=== PATIENT | female | born 1970 ===

== ENCOUNTER 2019-07-19 17:44 | Observation (INO) ==
--- NOTE | 2019-07-19 18:26 | Emergency Department Note ---
Disposition Clinical Impression: Chest pain, ST segment depression, Hypokalemia Disposition: Admitted As Inpatient Time of Disposition: 18:50 Chest Pain HPI - General Chief Complaint: ED Chest Pain Stated Complaint: chest pain Time Seen by Provider: 07/19/19 18:07 Source: patient Limitations: no limitations Vital Signs Reviewed: Yes Nursing Notes Reviewed: Yes - History of Present Illness HPI Narrative: Patient is a 48-year-old female past medical history of hyperlipidemia, hypokalemia, gastric bypass, and tobacco use, returning to the emergency department with chest pain. She was here earlier in the day, but then had to leave to help administer insulin to her son who has diabetes. She has a 2 day history of left-sided nonradiating chest pain. Associated with shortness of breath, lightheadedness, nausea. She has now returned for her pending admission for chest pain, ECG with ST depressions, and hypokalemia. Hospitalist is already evaluating the patient. Severity scale (1-10): 4 - Related Data Home Medications Medication Instructions Recorded Confirmed Meclizine HCl [Verticalm] 25 mg PO TID PRN 07/19/19 07/19/19 Nutritional Supplement [Osmolite 1 - 2 can PO DAILY 07/19/19 07/19/19 1.2 Daquan] Omeprazole [PriLOSEC] 40 mg PO DAILY 07/19/19 07/19/19 Triamcinolone Acet 0.1% CRM 1 appl TP BID PRN 07/19/19 07/19/19 [Kenalog] Allergies Allergy/AdvReac Type Severity Reaction Status Date / Time doxycycline Allergy Shakiness Verified 07/19/19 17:59 egg Allergy Difficulty Verified 07/19/19 17:59 Breathing Influenza Virus Vaccines Allergy See Verified 07/19/19 17:59 Comments Pneumococcal Vaccine Allergy See Verified 07/19/19 17:59 Comments sulfamethoxazole Allergy Vomiting Verified 07/19/19 17:59 [From Bactrim] trimethoprim [From Bactrim] Allergy Vomiting Verified 07/19/19 17:59 Amoxicillin [From Augmentin] AdvReac Gastrointestinal Verified 07/19/19 17:59 Upset clavulanic acid AdvReac Gastrointestinal Verified 07/19/19 17:59 [From Augmentin] Upset Review of Systems: Admits to headache, lightheadedness, chest pain, dyspnea, and nausea. Denies fevers, chills, vision changes, cough, abdominal pain, change in bowels, dysuria, or edema Chest Pain PMH - Past Medical History Medical history: Reports: hyperlipidemia, hypertension Surgical history: Reports: non-contributory Psychiatric history: Reports: anxiety, bipolar, depression - Social History Smoking Status: Current every day smoker Alcohol use: Reports: none Drug use: Reports: none Physical Exam GEN: No acute distress, A&O3 HEAD: Atraumatic, normocephalic EYES: Pupils symmetric, sclera white, conjunctiva pink HEART: RRR, normal S1 and S2, no murmurs LUNGS: Clear to auscultation bilaterally, no wheezes, rhonchi, or crackles ABD: Soft, nontender, nondistended EXT: No edema noted, pulses +2 NEURO: No focal deficits, cooperative with exam - General Limitations: no limitations General appearance: alert, in no apparent distress Course Vital Signs Temperature 98.7 F 07/19/19 17:59 Pulse Rate 71 07/19/19 17:59 Respiratory Rate 15 07/19/19 17:59 Blood Pressure 144/85 07/19/19 17:59 O2 Sat by Pulse Oximetry 98 07/19/19 17:59 Temperature 98.1 F 07/19/19 20:19 Pulse Rate 69 07/19/19 20:19 Respiratory Rate 18 07/19/19 20:19 Blood Pressure 156/83 07/19/19 20:19 O2 Sat by Pulse Oximetry 98 07/19/19 20:19 Oxygen Delivery Oxygen Delivery Room Air Chest Pain - MDM Narrative Medical decision making narrative: Patient is returning to the emergency department after earlier evaluation for left-sided chest pain. EKG shows sinus rhythm, heart rate of 81, with ST depression in the inferior lateral leads. Potassium is low at 2.7. Initial troponin is negative. Admitting hospitalist is artery returned to the emergency department to evaluate the patient for admission for hypokalemia and chest pain.
--- NOTE | 2019-07-19 18:40 | Emergency Department Note ---
Disposition Clinical Impression: Chest pain, ST segment depression, Hypokalemia Disposition: Admitted As Inpatient Time of Disposition: 20:20 General Adult HPI - General Chief complaint: ED Chest Pain Stated complaint: chest pain Time Seen by Provider: 07/19/19 18:07 Source: patient Limitations: no limitations - History of Present Illness Pain Scale: 4 - Related Data Home Medications Medication Instructions Recorded Confirmed Meclizine HCl [Verticalm] 25 mg PO TID PRN 07/19/19 07/19/19 Nutritional Supplement [Osmolite 1 - 2 can PO DAILY 07/19/19 07/19/19 1.2 Daquan] Omeprazole [PriLOSEC] 40 mg PO DAILY 07/19/19 07/19/19 Triamcinolone Acet 0.1% CRM 1 appl TP BID PRN 07/19/19 07/19/19 [Kenalog] Allergies Allergy/AdvReac Type Severity Reaction Status Date / Time doxycycline Allergy Shakiness Verified 07/19/19 17:59 egg Allergy Difficulty Verified 07/19/19 17:59 Breathing Influenza Virus Vaccines Allergy See Verified 07/19/19 17:59 Comments Pneumococcal Vaccine Allergy See Verified 07/19/19 17:59 Comments sulfamethoxazole Allergy Vomiting Verified 07/19/19 17:59 [From Bactrim] trimethoprim [From Bactrim] Allergy Vomiting Verified 07/19/19 17:59 Amoxicillin [From Augmentin] AdvReac Gastrointestinal Verified 07/19/19 17:59 Upset clavulanic acid AdvReac Gastrointestinal Verified 07/19/19 17:59 [From Augmentin] Upset Past Medical History - Past Medical History Medical history: Reports: hyperlipidemia, hypertension Surgical history: Reports: non-contributory Psychiatric history: Reports: anxiety, bipolar, depression - Social History Smoking Status: Current every day smoker Smokeless Tobacco Status: No Alcohol use: Reports: none Drug use: Reports: none Physical Exam - General Limitations: no limitations General appearance: alert, in no apparent distress Course Vital Signs Temperature 98.7 F 07/19/19 17:59 Pulse Rate 71 07/19/19 17:59 Respiratory Rate 15 07/19/19 17:59 Blood Pressure 144/85 07/19/19 17:59 O2 Sat by Pulse Oximetry 98 07/19/19 17:59 Temperature 98.1 F 07/19/19 20:19 Pulse Rate 69 07/19/19 20:19 Respiratory Rate 18 07/19/19 20:19 Blood Pressure 156/83 07/19/19 20:19 O2 Sat by Pulse Oximetry 98 07/19/19 20:19 Oxygen Delivery Oxygen Delivery Room Air Attestation Statement - Attestation Attestation: I saw and evaluated the patient and and reviewed the resident's note/PA note/R D ENGINEER note, and I agree with the findings and plan. I personally supervised and was present for the josue/critical portions of any procedures. The medical decision- making was reviewed with the DAIRY QUALITY ASSURANCE OFFICER/PA/Advanced Practice Nurse/Resident Physician. I agree with the documented findings, disposition and treatment plan as described except to the extent set forth below. Patient was here earlier with chest pain and did have inferior lateral ST depression and significant hypokalemia with potassium of 2.6 returns now for admission and the reason she stopped this because she had to administer insulin to her son but now she is back for the admission that we recommended and is being seen by the hospitalist and we will have her admitted for further evaluation of chest pain and the significant hypokalemia. Of note the hyperkalemia is likely because of decreased absorption because of a bariatric surgery she had done when she was much younger and decreased absorption. 184
[2019-07-19] MEDS ORDERED: Ondansetron 4 MG/2 ML VIAL IVP PRN (21:55)
[2019-07-19] MEDS ORDERED: Menthol 9.1 MG LOZENGE PO PRN (22:02)
[2019-07-19] MEDS ORDERED: Haloperidol Lactate 5 MG/ML VIAL IVP ONE (22:03)
[2019-07-19 22:49] VITALS: BP 145/85
--- NOTE | 2019-07-19 23:48 | Event Note ---
Date of Encounter: 07/19/19 Time of Encounter: 21:28 Alerted by 3B Charge Nurse ESSIE Martin that the pt. was now on 3B for chest pain and wished to leave the unit to smoke. Nurse explained that the pt. was not allowed off the unit to smoke per hospital policy, d/t the fact that she had IV access, and was on telemetry. Nurse reported that the pt. was now agitated and anxious and wanting to leave AMA. Patient was seen in ED earlier in the day and left AMA. Patient then returned to the ED and pt. was discussed w/daytime admitter and accepted. However, patient was never seen by day team, no orders were placed by admitter, and there was no sign-out given to night team. Went to see this patient who was pacing in the room. Family member was present. I introduced myself and asked the patient what was wrong. The patient stated that she was anxious, that she did not want to be controlled by any male, and th at she has many issues in her life. I explained that she was not allowed to leave to smoke for the reasons outlined by the Charge Nurse previously. Patient stated she would probably leave AMA. I informed the patient that she was here for chest pain and she had a choice: stay and be treated for her chest pain or leave and possibly suffer an [place] once she left and . I informed her the choice was hers an no one else's. I informed the patient I could order a nicotine patch and something for her present anxiety/agitation. She declined both stating that drugs make her "crazy". Family member tried to reason with the patient as well. Patient then went into the bathroom to vomit. Patient came out of the restroom and I then explained that I could order a low dose of Haldol for her agitation as well as a patch. Patient then began drinking a Mountain Dew. I stated that Mountain Dew was highly caffeinated and would increase her HR. I instructed the patient to drink water instead. I then informed the pt. that whoever was going to admit her would likely order a stress test in the morning, meaning there would be no food, liquids, caffeine, or nicotine allowed after 00:00 d/t the stress test. Patient became more agitated. Patient stated she would try the low dose of Haldol. Ordered Zofran was DCd d/t contraindication w/Haldol r/t QT prolongation. Patient then stated she uses menthol cough drops at home for her nicotine cravings. Menthol cough drops ordered. Patient stated she would stay for the time being. Nurse instructed to continue monitoring the patient until she was admitted. Alerted by Charge Nurse at 21:43 that the pt. was leaving AMA and had signed papers. IV access was removed and patient left w/family member.
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
== END 2019-07-19 23:30 | disposition left against medical advice (07) ==
LOC: EMEROOARM 17:44 → 3BNU 17:44
PROVIDERS: ADMIT Internal Medicine; ATTEND Internal Medicine

== ENCOUNTER 2021-07-07 16:25 | Observation (INO) ==
[2021-07-07] MEDS ORDERED: 0.9 % Sodium Chloride 1,000 ML IVC ONE (16:40)
[2021-07-07 17:36] LABS: BUN/Creatinine Ratio 4 (6-26); Blood Urea Nitrogen 3 mg/dL (6-20); Calcium 9.6 mg/dL (8.6-10.3); Carbon Dioxide 35 mEq/L (23-29); Chloride 89 mEq/L (98-107); Glucose 104 mg/dL (70-105); Magnesium 1.4 mg/dL (1.6-2.6); Osmolality,Calculated 279 (280-300); Potassium 2.2 mEq/L (3.5-5.1); Sodium 136 mEq/L (136-145); Troponin I < 0.03 ng/mL (< 0.04); eGFR For African Americans > 60 (> 60); eGFR For Non-African Americans > 60 (> 60)
[2021-07-07] MEDS ORDERED: Potassium Chloride 40 MEQ, Lidocaine 1% 2 ML in 0.9 % Sodium Chloride 500 ML IVPB ONE (17:42)
[2021-07-07 17:58] LABS: Basophils # 0.1 K/mcL (0.0-0.2); Basophils % 0.6 %; Eosinophils # 0.1 K/mcL (0.0-0.6); Eosinophils % 0.5 %; Hematocrit 43.8 % (35.3-44.9); Hemoglobin 14.5 g/dL (11.5-15.4); Immature Granulocytes % 0.7 % (0-4); Lymphocytes # 1.1 K/mcL (0.6-4.6); Lymphocytes % 8.5 %; Mean Corpuscular HGB Conc 33.1 g/dL (31.6-35.5); Mean Corpuscular Hemoglobin 32.1 pg (28.0-33.3); Mean Corpuscular Volume 96.9 fL (83.0-100.0); Mean Platelet Volume 9.6 fL (9.4-12.4); Monocytes # 0.8 K/mcL (0.0-1.3); Monocytes % 5.7 %; Neutrophils # 11.3 K/mcL (1.6-8.9); Platelet Count 197 K/mcL (140-400); Red Blood Count 4.52 M/mcL (3.82-4.97); White Blood Count 13.4 K/mcL (4.3-11.1)
[2021-07-07] MEDS ORDERED: Potassium Chloride Elixir 20 MEQ/15 ML UDC PO ONE (19:27)
[2021-07-07 19:33] LABS: Adenovirus Not Detected (Not Detect); Bordetella Pertussis Not Detected (Not Detect); Chlamydophila pneumoniae Not Detected (Not Detect); Coronavirus 229E Not Detected (Not Detect); Coronavirus HKU1 Not Detected (Not Detect); Coronavirus NL63 Not Detected (Not Detect); Coronavirus OC43 Not Detected (Not Detect); Human Metapneumovirus Not Detected (Not Detect); Human Rhinovirus/Enterovirus Not Detected (Not Detect); Influenza A Subtype 2009 H1 Not Detected (Not Detect); Influenza B Not Detected (Not Detect); Mycoplasma pneumoniae Not Detected (Not Detect); Parainfluenza Virus 1 Not Detected (Not Detect); Parainfluenza Virus 2 Not Detected (Not Detect); Parainfluenza Virus 3 Not Detected (Not Detect); Parainfluenza Virus 4 Not Detected (Not Detect); Respiratory Syncytial Virus Not Detected (Not Detect); SARS-CoV-2 Not Detected (Not Detect)
[2021-07-07] MEDS ORDERED: Perflutren Lipid Microsphere 1.3 ML in 0.9 % Sodium Chloride 8.7 ML IVP PRN (19:35)
[2021-07-07] MEDS ORDERED: Albuterol 2.5 MG/3 ML NEBULIZER IH PRN (19:35)
[2021-07-07] MEDS ORDERED: *HR* Metoprolol 5 MG/5 ML VIAL IVP ONE (19:40)
[2021-07-07] MEDS ORDERED: Acetaminophen 325 MG TABLET PO PRN (19:41)
[2021-07-07] MEDS ORDERED: Naloxone 0.4 MG/ML INJ IVP PRN (19:41)
[2021-07-07] MEDS ORDERED: Ondansetron 4 MG/2 ML VIAL IVP PRN (19:41)
[2021-07-07] MEDS ORDERED: Melatonin 3 MG TABLET PO PRN (19:41)
[2021-07-07] MEDS ORDERED: 0.9 % Sodium Chloride 1,000 ML IVC SCH (19:45)
[2021-07-07] MEDS: Albuterol 2.5 MG/3 ML NEBULIZER IH SCH (20:12)
[2021-07-07 23:33] VITALS: BP 145/74; PULSE 64; TEMP 97.9; O2SAT 97
[2021-07-08] MEDS: Albuterol 2.5 MG/3 ML NEBULIZER IH SCH (00:11)
[2021-07-08 00:58] LABS: Basophils # 0.1 K/mcL (0.0-0.2); Basophils % 0.4 %; Eosinophils # 0.2 K/mcL (0.0-0.6); Eosinophils % 1.2 %; Hematocrit 37.2 % (35.3-44.9); Hemoglobin 12.1 g/dL (11.5-15.4); Immature Granulocytes % 0.8 % (0-4); Lymphocytes # 2.1 K/mcL (0.6-4.6); Lymphocytes % 15.8 %; Mean Corpuscular HGB Conc 32.5 g/dL (31.6-35.5); Mean Corpuscular Hemoglobin 30.9 pg (28.0-33.3); Mean Corpuscular Volume 94.9 fL (83.0-100.0); Mean Platelet Volume 8.4 fL (9.4-12.4); Monocytes # 0.8 K/mcL (0.0-1.3); Monocytes % 5.8 %; Neutrophils # 9.8 K/mcL (1.6-8.9); Platelet Count 273 K/mcL (140-400); Red Blood Count 3.92 M/mcL (3.82-4.97)
[2021-07-08 02:09] LABS: Alanine Aminotransferase 11 Units/L (7-52); Albumin 2.8 g/dL (3.5-5.7); Alkaline Phosphatase 86 Units/L (34-104); Aspartate Amino Transferase 16 Units/L (13-39); BUN/Creatinine Ratio 4 (6-26); Bilirubin,Total 0.4 mg/dL (0.3-1.0); Blood Urea Nitrogen 3 mg/dL (6-20); Calcium 7.7 mg/dL (8.6-10.3); Carbon Dioxide 24 mEq/L (23-29); Chloride 105 mEq/L (98-107); Chol/HDL Ratio 5.7 (0-4.9); Cholesterol 164 mg/dL (< 200); Globulin 2.7 g/dL (2.4-3.5); Glucose 125 mg/dL (70-105); HDL Cholesterol 29 mg/dL (40-59); LDL Cholesterol,Calculated 109 mg/dL (< 100); Osmolality,Calculated 286 (280-300); Potassium 2.9 mEq/L (3.5-5.1); Sodium 139 mEq/L (136-145); Total Protein 5.5 g/dL (6.4-8.9); Triglycerides 130 mg/dL (< 150); eGFR For African Americans > 60 (> 60); eGFR For Non-African Americans > 60 (> 60)
[2021-07-08] MEDS ORDERED: *HR* Heparin 5,000 UNIT/ML VIAL SQ SCH (06:00)
[2021-07-08] MEDS ORDERED: Aspirin 81 MG TAB.CHEW PO SCH (09:00)
[2021-07-08] MEDS ORDERED: NUTRITIONAL SUPPLEMENT PO SCH (09:00)
== END 2021-07-08 03:30 | disposition left against medical advice (07) ==
LOC: 2ANU 16:25 → EMEROOARM 16:25 → 2ANU 19:32
PROVIDERS: ADMIT Student in an Organized Health Care Education/Training Program; ATTEND Student in an Organized Health Care Education/Training Program

== ENCOUNTER 2022-07-06 20:04 | Observation (INO) ==
[2022-07-06 22:25] LABS: Basophils # 0.1 K/mcL (0.0-0.2); Basophils % 0.4 %; Eosinophils # 0.1 K/mcL (0.0-0.6); Eosinophils % 0.6 %; Hematocrit 46.1 % (35.3-44.9); Hemoglobin 15.9 g/dL (11.5-15.4); Immature Granulocytes % 0.8 % (0-4); Lymphocytes # 1.8 K/mcL (0.6-4.6); Lymphocytes % 10.8 %; Mean Corpuscular HGB Conc 34.5 g/dL (31.6-35.5); Mean Corpuscular Hemoglobin 30.7 pg (28.0-33.3); Mean Platelet Volume 8.6 fL (9.4-12.4); Monocytes % 5.8 %; Neutrophils # 13.5 K/mcL (1.6-8.9); Platelet Count 388 K/mcL (140-400); Red Blood Count 5.18 M/mcL (3.82-4.97); Red Cell Distribution Width 13.5 % (11.5-14.5); Segmented Neutrophils % 81.6 %; White Blood Count 16.5 K/mcL (4.3-11.1)
[2022-07-06 22:30] LABS: Activated Partial Thrombo Time 35.9 Seconds (26.0-36.0); Prothrombin Time 10.7 Seconds (9.4-12.1)
[2022-07-06] MEDS: Nitroglycerin 0.4 MG TAB.SUBL SL PRN ×3 (22:40→23:26)
[2022-07-06 22:42] LABS: Calcium 8.5 mg/dL (8.6-10.3); Potassium 2.5 mEq/L (3.5-5.1)
[2022-07-06 22:54] LABS: Amphetamine Screen,Urine Negative ng/mL (Cutoff=1000); Barbiturate Screen,Urine Negative ng/mL (Cutoff=200); Benzodiazepines Screen,Urine Negative ng/mL (Cutoff=200); Cannabinoid Screen,Urine Negative ng/mL (Cutoff = 50); Cocaine Screen,Urine Negative ng/mL (Cutoff= 300); Opiate Screen,Urine Negative ng/mL (Cutoff=300); Phencyclidine Screen,Urine Negative ng/mL (Cutoff=25)
[2022-07-06] MEDS ORDERED: POTASSIUM CHLORIDE IN 0.9%NACL 40 MEQ/1,000 ML IV.SOLN IV ONE (23:05)
[2022-07-06] MEDS ORDERED: 0.9 % Sodium Chloride 1,000 ML IVC ONE (23:09)
[2022-07-06] MEDS ORDERED: Aspirin 325 MG TABLET PO ONE (23:28)
[2022-07-06] MEDS ORDERED: 0.9 % Sodium Chloride w KCl 40 MEQ/1,000 ML MLS IVC ONE (23:45)
[2022-07-07] MEDS ORDERED: Morphine Sulfate 2 MG/ML SYRINGE IVP ONE (00:24)
[2022-07-07] MEDS ORDERED: Melatonin 3 MG TABLET PO PRN (00:41)
[2022-07-07] MEDS ORDERED: Acetaminophen 325 MG TABLET PO PRN (00:41)
[2022-07-07] MEDS ORDERED: Ondansetron 4 MG/2 ML VIAL IVP PRN (00:41)
[2022-07-07] MEDS ORDERED: Naloxone 0.4 MG/ML INJ IVP PRN (00:41)
[2022-07-07] MEDS: Nitroglycerin 0.4 MG TAB.SUBL SL PRN (02:45)
[2022-07-07] MEDS ORDERED: *HR* Labetalol 20 MG/4 ML SYRINGE IVP ONE (02:45)
[2022-07-07] MEDS ORDERED: *HR* LORazepam 0.5 MG TABLET PO ONE (03:02)
[2022-07-07 04:01] LABS: BUN/Creatinine Ratio 10 (6-26); Blood Urea Nitrogen 7 mg/dL (6-20); Calcium 8.5 mg/dL (8.6-10.3); Carbon Dioxide 30 mEq/L (23-29); Chloride 92 mEq/L (98-107); Glucose 124 mg/dL (70-105); Magnesium 1.3 mg/dL (1.6-2.6); Osmolality,Calculated 275 (280-300); Potassium 2.9 mEq/L (3.5-5.1); Sodium 133 mEq/L (136-145)
[2022-07-07 04:14] LABS: Basophils # 0.1 K/mcL (0.0-0.2); Basophils % 0.4 %; Eosinophils # 0.1 K/mcL (0.0-0.6); Eosinophils % 0.8 %; Hemoglobin 15.5 g/dL (11.5-15.4); Immature Granulocytes % 0.8 % (0-4); Lymphocytes % 13.5 %; Mean Corpuscular HGB Conc 35.2 g/dL (31.6-35.5); Mean Corpuscular Hemoglobin 30.9 pg (28.0-33.3); Mean Corpuscular Volume 87.6 fL (83.0-100.0); Mean Platelet Volume 8.9 fL (9.4-12.4); Monocytes % 6.7 %; Neutrophils # 11.2 K/mcL (1.6-8.9); Platelet Count 418 K/mcL (140-400); Red Blood Count 5.02 M/mcL (3.82-4.97); Red Cell Distribution Width 13.4 % (11.5-14.5); Segmented Neutrophils % 77.8 %; White Blood Count 14.4 K/mcL (4.3-11.1)
[2022-07-07 04:26] LABS: Estimated Average Glucose 134 mg/dl; Hemoglobin A1C 6.3 %
[2022-07-07 04:32] LABS: Chol/HDL Ratio 6.6 (0-4.9); Troponin I 0.03 ng/mL (< 0.04)
[2022-07-07] MEDS: *HR* Enoxaparin 40 MG/0.4 ML SYRINGE SQ SCH (05:16)
[2022-07-07] MEDS: lisinopriL 10 MG TABLET PO SCH (08:19)
[2022-07-07] MEDS: Nicotine 21 MG PATCH.TD24 TD SCH (08:19)
[2022-07-07] MEDS: NIFEdipine XL (24 HR) 60 MG TAB.ER.24 PO SCH (08:19)
[2022-07-07] MEDS: 0.9 % Sodium Chloride w KCl 40 MEQ/1,000 ML MLS IVC SCH ×2 (08:20→23:35)
[2022-07-07 09:32] LABS: BUN/Creatinine Ratio 9 (6-26); Blood Urea Nitrogen 6 mg/dL (6-20); Calcium 8.4 mg/dL (8.6-10.3); Carbon Dioxide 33 mEq/L (23-29); Chloride 94 mEq/L (98-107); Glucose 109 mg/dL (70-105); Osmolality,Calculated 276 (280-300); Potassium 2.8 mEq/L (3.5-5.1); Sodium 134 mEq/L (136-145); Troponin I 0.03 ng/mL (< 0.04)
[2022-07-07] MEDS ORDERED: Iopamidol - 370 500 ML MLS IVP ONE (14:31)
[2022-07-07 20:47] LABS: Thyroid Stimulating Hormone 1.295 mcIU/mL (0.340-5.600)
[2022-07-08 03:24] LABS: Calcium 8.7 mg/dL (8.6-10.3); Potassium 4.2 mEq/L (3.5-5.1)
[2022-07-08 03:52] LABS: White Blood Count 11.3 K/mcL (4.3-11.1)
[2022-07-08 03:53] LABS: Basophils # 0.1 K/mcL (0.0-0.2); Basophils % 0.8 %; Eosinophils # 0.3 K/mcL (0.0-0.6); Eosinophils % 2.8 %; Hematocrit 42.2 % (35.3-44.9); Immature Granulocytes % 1.1 % (0-4); Lymphocytes # 2.5 K/mcL (0.6-4.6); Mean Corpuscular HGB Conc 32.9 g/dL (31.6-35.5); Mean Corpuscular Hemoglobin 30.9 pg (28.0-33.3); Monocytes # 0.7 K/mcL (0.0-1.3); Monocytes % 6.5 %; Neutrophils # 7.5 K/mcL (1.6-8.9); Platelet Count 390 K/mcL (140-400); Red Cell Distribution Width 14.5 % (11.5-14.5); Segmented Neutrophils % 66.8 %
[2022-07-08 03:55] LABS: Hemoglobin 13.9 g/dL (11.5-15.4); Mean Corpuscular Volume 93.8 fL (83.0-100.0)
[2022-07-08] MEDS: *HR* Enoxaparin 40 MG/0.4 ML SYRINGE SQ SCH (06:39)
[2022-07-08] MEDS: NIFEdipine XL (24 HR) 60 MG TAB.ER.24 PO SCH (10:28)
[2022-07-08] MEDS: lisinopriL 10 MG TABLET PO SCH (10:28)
[2022-07-08] MEDS: Nicotine 21 MG PATCH.TD24 TD SCH (10:29)
[2022-07-08 11:06] LABS: Bilirubin,Urine Negative (Negative); Blood,Urine Trace-intact (Negative); Clarity,Urine Clear (Clear); Color,Urine Yellow (Yellow); Glucose,Urine (UA) Normal (Normal); Ketones,Urine Negative (Negative); Leukocyte Esterase,Urine Negative (Negative); Nitrite,Urine Negative (Negative); Protein,Urine >=300 mg/dL (Neg-Trace); Specific Gravity,Urine >= 1.030 (1.010-1.025); Urobilinogen,Urine Normal (Normal)
[2022-07-08 11:08] LABS: Sodium, Urine 52.2 mEq/L
[2022-07-08 11:39] LABS: Bacteria,Urine Few per hpf (None-Few); RBC,Urine 0-3 per hpf (0-3); Squamous Epithelial Cell,Urine Few per hpf (None-Few); WBC,Urine 0-3 per hpf (0-3)
[2022-07-08 11:40] LABS: Hyaline Casts,Urine Few per lpf (None Seen)
[2022-07-08 11:41] LABS: Budding Yeast,Urine Few per hpf (None Seen)
[2022-07-08 11:43] VITALS: BP 161/90; PULSE 79; TEMP 98.3; O2SAT 96
[2022-07-08] MEDS: Spironolactone 25 MG TABLET PO SCH ×2 (12:04→12:06)
== END 2022-07-08 13:52 | disposition home or self-care (01) ==
LOC: EMEROOARM 20:04 → 2ANU 20:04 → SUATTDRO 07-07 00:37 → 2ANU 07-07 01:26
PROVIDERS: ADMIT Internal Medicine; ATTEND Internal Medicine